=== PATIENT | female | born 1945 | race Caucasian/White ===

== ENCOUNTER 2019-12-20 14:22 | Emergency (ER) | payer MEDICARE ==
[2019-12-20 14:28] VITALS: RESP 18; TEMP 98.1
[2019-12-20 15:42] LABS: Basophils # (A) 0.1 k/uL (0-0.2); Basophils % (A) 1 %; Eosinophils # (A) 0.1 k/uL (0-0.7); Eosinophils % (A) 2 %; HGB 14.6 gm/dL (11.4-16.0); Lymphocytes # (A) 1.8 k/uL (1.0-4.8); Lymphocytes % (A) 30 %; MCH 28.3 pg (25.0-35.0); MCHC 32.4 g/dL (31.0-37.0); MCV 87.5 fL (80.0-100.0); Mean Platelet Volume 6.9; Monocytes # (A) 0.3 k/uL (0-1.0); Monocytes % (A) 5 %; Neutrophils # (A) 3.5 k/uL (1.3-7.7); Neutrophils % (A) 59 %; Platelet Count 309 k/uL (150-450); RBC 5.14 m/uL (3.80-5.40); RDW 13.7 % (11.5-15.5); WBC 5.9 k/uL (3.8-10.6)
[2019-12-20 15:49] LABS: Calcium 9.7 mg/dL (8.4-10.2); Potassium 4.3 mmol/L (3.5-5.1)
--- NOTE | 2019-12-20 15:49 | XR ---
EXAMINATION TYPE: XR chest 2V DATE OF EXAM: 12/20/2019 COMPARISON: NONE HISTORY: Hypertension TECHNIQUE: 2 views FINDINGS: Heart is normal. Lungs are clear of infiltrate. There is no pleural effusion. There is smal l linear density left lung base. Bony thorax is intact. IMPRESSION: Minimal pleural reaction or subsegmental atelectasis left lung base. Normal heart.
--- NOTE | 2019-12-20 15:55 | ED ---
General Adult HPI - General Chief complaint: Recheck/Abnormal Lab/Rx Stated complaint: High blood pressure Time Seen by Provider: 12/20/19 15:05 Source: patient Mode of arrival: ambulatory Limitations: no limitations - History of Present Illness Initial comments: Dictation was produced using [employer] dictation software. please excuse any grammatical, word or spelling errors. Chief Complaint: 74-year-old female with past medical history of hypertension and glaucoma presents with elevated blood pressure. History of Present Illness: She is 74-year-old female she has history of hypertension. She is has her hypertension managed by her primary care physician. Patient was instructed by her PCP to regular check her blood pressures and to seek medical attention if her systolics are elevated above 170. Patient checked her blood pressure today and she had systolics in the 200s. Patient denies any symptoms of headache, chest pain or shortness of breath. She denies any strokelike symptoms. She states that she is been struggling with ALLERGIC reactions to glaucoma medications. Her reactions to her glaucoma medications is known by ophtamologist Dr. Boo. She recently started preservative-free eyedrops treat her glaucoma. There is suspicion that patient having a reaction to preservatives and medications. States that her symptoms of reaction are conjunctivitis, eye watering. She denies any eye pain at this time. The ROS documented in this emergency department record has been reviewed and confirmed by me. Those systems with pertinent positive or negative responses have been documented in the HPI. All other systems are other negative and/or noncontributory. PHYSICAL EXAM: General Impression: Alert and oriented x3, not in acute distress HEENT: Normocephalic atraumatic, extra-ocular movements intact, pupils equal and reactive to light bilaterally, mucous membranes moist, no pain with shooting of the lites, no tenderness to palpation of the globes, there is some erythema to the upper and lower eyelids, mild lacrimation and conjunctivitis Cardiovascular: Heart regular rate and rhythm, S1&S2 audible, no murmurs, rubs or gallops Chest: Lungs clear to auscultation bilaterally, no rhonchi, no wheeze, no rales Abdomen: Bowel sounds present, abdomen soft, non-tender, non-distended, no organomegaly Musculoskeletal: Pulses present and equal in all extremities, no peripheral edema Motor: no focal deficits noted Neurological: CN II-XII grossly intact, no focal motor or sensory deficits noted Skin: Intact with no visualized rashes Psych: Normal affect and mood ED course: 74 year old female past medical history of hypertension presents with clinical presentation consistent with asymptomatic hypertension. She also has secondary complaint of eye reaction to her medications. Vital signs upon arrival shows blood pressure 216/112, rest of vital signs within acceptable limits.Return evaluation obtained. CBC, metabolic panel is unremarkable. Patient given small dose of hydralazine with improvement of blood pressure. Patient did have some eye complaints. Her visual acuity is 20/40 bilaterally. Intraocular pressures were measuring 14 on the right 18 on the left. She was given some proparacaine with immediate relief of her symptoms. This concern that patient's eye symptoms are secondary to chemical conjunctivitis. She's been having persistent symptoms for the last several weeks since being managed by napper grinder. States that her eye symptoms appear to be the same. Patient told that she should follow-up with her primary care physician for outpatient management of her blood pressure. She is told to return to the emergency department if her blood pressure is high and she has any symptoms of chest pain shortness of breath, strokelike symptoms or headache. Patient is understandable and agreeable to plan. Patient will be discharged. EKG interpretation: Ventricular rate 60, sinus rhythm, MA interval 210, Q 66, QTC 404. No MA prolongation, no QTC prolongation, no ST or T-wave changes noted. Overall, this EKG is unremarkable - Related Data Home Medications Medication Instructions Recorded Confirmed Diltiazem Cd [Cardizem Cd] 240 mg PO HS 06/19/16 07/31/16 Metoprolol Tartrate [Lopressor] 50 mg PO DAILY 06/19/16 07/31/16 Oxaprozin [Daypro] 600 mg PO Q2D 06/19/16 07/31/16 Allergies Allergy/AdvReac Type Severity Reaction Status Date / Time dorzolamide Allergy Unknown Verified 12/20/19 14:28 Review of Systems ROS Statement: Those systems with pertinent positive or pertinent negative responses have been documented in the HPI. ROS Other: All systems not noted in ROS Statement are negative. Past Medical History Past Medical History: Eye Disorder, Hypertension, Osteoarthritis (OA) Additional Past Medical History / Comment(s): recent hx. detached retina after last cataract surg. History of Any Multi-Drug Resistant Organisms: None Reported Additional Past Surgical History / Comment(s): colonoscopies, recent cataract surg. left eye Past Anesthesia/Blood Transfusion Reactions: No Reported Reaction Past Psychological History: No Psychological Hx Reported Smoking Status: Former smoker Past Alcohol Use History: None Reported Past Drug Use History: None Reported - Past Family History Sister(s) Family Medical History: Cancer General Exam Limitations: no limitations Course Vital Signs 12/20/19 12/20/19 14:25 15:54 Temperature 98.1 F Pulse Rate 63 60 Respiratory 18 18 Rate Blood Pressure 216/112 188/110 O2 Sat by Pulse 98 98 Oximetry Medical Decision Making - Lab Data Result diagrams: 12/20/19 15:27 12/20/19 15:27 Lab Results 12/20/19 12/20/19 Range/Units 15:27 15:27 WBC 5.9 (3.8-10.6) k/uL RBC 5.14 (3.80-5.40) m/uL Hgb 14.6 (11.4-16.0) gm/dL Hct 45.0 (34.0-46.0) % MCV 87.5 (80.0-100.0) fL MCH 28.3 (25.0-35.0) pg MCHC 32.4 (31.0-37.0) g/dL RDW 13.7 (11.5-15.5) % Plt Count 309 (150-450) k/uL Neutrophils % 59 % Lymphocytes % 30 % Monocytes % 5 % Eosinophils % 2 % Basophils % 1 % Neutrophils # 3.5 (1.3-7.7) k/uL Lymphocytes # 1.8 (1.0-4.8) k/uL Monocytes # 0.3 (0-1.0) k/uL Eosinophils # 0.1 (0-0.7) k/uL Basophils # 0.1 (0-0.2) k/uL Sodium 141 (137-145) mmol/L Potassium 4.3 (3.5-5.1) mmol/L Chloride 107 (98-107) mmol/L Carbon Dioxide 24 (22-30) mmol/L Anion Gap 10 mmol/L BUN 18 H (7-17) mg/dL Creatinine 0.79 (0.52-1.04) mg/dL Est GFR (CKD-EPI)AfAm 85 (>60 ml/min/1.73 sqM) Est GFR (CKD-EPI)NonAf 74 (>60 ml/min/1.73 sqM) Glucose 105 H (74-99) mg/dL Calcium 9.7 (8.4-10.2) mg/dL Disposition Clinical Impression: Hypertension, Conjunctivitis Disposition: HOME SELF-CARE Condition: Good Instructions (If sedation given, give patient instructions): Hypertension (ED) Is patient prescribed a controlled substance at d/c from ED?: No Referrals: Praveen Wood MD [Primary Care Provider] - 1-2 days Time of Disposition: 17:17
[2019-12-20] MEDS ORDERED: hydrALAZINE HCL 20 MG/ML 1 ML VIAL IVP STA (16:13)
[2019-12-20] MEDS ORDERED: PROPARACAINE 0.5% OPHTH DROPS 15 ML BTL BOTH EYES STA (16:54)
[2019-12-20 17:43] VITALS: BP 175/85; PULSE 62
== END 2019-12-20 17:33 | disposition home or self-care (01) ==
LOC: EC 14:22
DX: I10 Essential (primary) hypertension (principal); H10.213 Acute toxic conjunctivitis, bilateral; T50.995A Adverse effect of other drugs, medicaments and biological substances, initial encounter; M19.90 Unspecified osteoarthritis, unspecified site; Z87.891 Personal history of nicotine dependence; Z79.1 Long term (current) use of non-steroidal anti-inflammatories (NSAID); Z79.899 Other long term (current) drug therapy; Z88.8 Allergy status to other drugs, medicaments and biological substances; Z98.42 Cataract extraction status, left eye
CPT/HCPCS: 99284; 96374; 36415; 93005; 80048; 85025; 71046; J0360

== ENCOUNTER 2021-07-21 13:26 | Emergency (ER) | payer MEDICARE ==
[2021-07-21 13:34] VITALS: TEMP 97.9
[2021-07-21] MEDS ORDERED: hydrALAZINE HCL 20 MG/ML 1 ML VIAL IVP STA ×2 (14:08→15:13)
--- NOTE | 2021-07-21 15:00 | ED ---
General Adult HPI - General Chief complaint: Recheck/Abnormal Lab/Rx Stated complaint: High BP sent by pcp Time Seen by Provider: 07/21/21 14:01 Source: patient Mode of arrival: ambulatory Limitations: no limitations - History of Present Illness Initial comments: This 76-year-old female presents with a complaint of hypertension. She states that she was sent over by her doctor. She relates a long-standing history of high blood pressure for the last 20+ years. She normally had been taking the beta roland as well as a calcium channel roland and recently started seeing Dr. Gutierres. Her heart rate at times was apparently down into the 40s and now she is having some medication adjustments. She was taken off the Cardizem and beta roland and apparently started on lisinopril and just picked up a prescription for hydralazine. She states that she has had a very faint slight frontal headache but nothing severe whatsoever. She denies any other symptomatology. She denies any chest pain or shortness of breath. She denies any recent change in her eating habits. No recent fevers or infections. No other complaints or modifying factors. She states that she has been somewhat anxious in regards to her hypertension recently. - Related Data Home Medications Medication Instructions Recorded Confirmed Diltiazem Cd [Cardizem Cd] 240 mg PO HS 06/19/16 07/31/16 Metoprolol Tartrate [Lopressor] 50 mg PO DAILY 06/19/16 07/31/16 Oxaprozin [Daypro] 600 mg PO Q2D 06/19/16 07/31/16 Allergies Allergy/AdvReac Type Severity Reaction Status Date / Time dorzolamide Allergy Unknown Verified 07/21/21 13:32 Review of Systems ROS Statement: Those systems with pertinent positive or pertinent negative responses have been documented in the HPI. ROS Other: All systems not noted in ROS Statement are negative. Past Medical History Past Medical History: Eye Disorder, Hypertension, Osteoarthritis (OA) Additional Past Medical History / Comment(s): recent hx. detached retina after last cataract surg. History of Any Multi-Drug Resistant Organisms: None Reported Additional Past Surgical History / Comment(s): colonoscopies, recent cataract surg. left eye Past Anesthesia/Blood Transfusion Reactions: No Reported Reaction Past Psychological History: No Psychological Hx Reported Smoking Status: Never smoker Past Alcohol Use History: None Reported Past Drug Use History: None Reported - Past Family History Sister(s) Family Medical History: Cancer General Exam - General Exam Comments Initial Comments: GENERAL: The patient is well nourished and well hydrated. VITAL SIGNS: Heart rate, blood pressure, respiratory rate reviewed as recorded in nurse's notes. EYES: Pupils are round and reactive. Extraocular movements are intact. No conjunctival / lid redness or swelling. ENT: No external evidence of injury, swelling, or ecchymosis. Airway is patent. Throat is clear. NECK: Nontender. No swelling or evidence of injury. No subcutaneous emphysema. Trachea is midline. No thyroid mass. HEART: Regular rate and rhythm. Good peripheral pulses. LUNGS/CHEST: Breath sounds clear and equal bilaterally. No rales, rhonchi, or wheezes. No ecchymosis, subcutaneous emphysema, or tenderness. ABDOMEN: Abdomen soft without tenderness. No palpable masses or organomegaly. No peritoneal signs. No abdominal wall swelling or ecchymosis. EXTREMITIES: No extremity tenderness. Normal muscle tone and function. No thoracolumbar tenderness. NEUROLOGIC: Sensation is grossly intact. Cranial nerve exam reveals face is symmetrical, tongue is midline, speech is clear. SKIN: No abrasions or ecchymosis is noted. No induration or masses noted. PSYCHIATRIC: Alert and oriented. Appropriate behavior and judgment. Limitations: no limitations Course Vital Signs 07/21/21 13:28 Temperature 97.9 F Pulse Rate 67 Respiratory 19 Rate Blood Pressure 222/106 O2 Sat by Pulse 97 Oximetry Medical Decision Making - Medical Decision Making The patient was seen and examined. All diagnostics were reviewed. She just had lab work done yesterday and this is reviewed and is normal does include a basic metabolic profile. The EKG shows a normal sinus rhythm at a rate of 62 with a first-degree AV block. There is no acute ST-T wave changes identified. The IL intervals 210, the QRS duration is 68, and the QTc interval is 399. An IV is established and she received hydralazine 10 mg. Her blood pressure did come down fairly significantly. She'll be given another 5 mg of hydralazine. It is felt as though she stable for discharge. She relates only a very slight headache and it is not felt as though computed tomography scan is warranted at this time. This felt as though she stable for discharge home with close follow- up. She is to continue with medication changes and put forth by her roustabout supervisor as well. Return parameters were discussed. She is to continue with her blood pressure log as well. Close follow-up recommended. Disposition Clinical Impression: Hypertensive crisis Disposition: HOME SELF-CARE Condition: Good Instructions (If sedation given, give patient instructions): Low-Sodium Diet (ED), Hypertension in the Older Adult (ED) Additional Instructions: Please continue with the medications as prescribed by your doctor. Is patient prescribed a controlled substance at d/c from ED?: No Referrals: Keith Monson MD [Primary Care Provider] - 1-2 days Time of Disposition: 15:13
[2021-07-21 15:32] VITALS: BP 162/79; PULSE 63; RESP 18
== END 2021-07-21 15:41 | disposition home or self-care (01) ==
LOC: EC 13:26
DX: I16.9 Hypertensive crisis, unspecified (principal); M19.90 Unspecified osteoarthritis, unspecified site
CPT/HCPCS: 93005; 99283; 96374; J0360

== ENCOUNTER 2021-08-16 17:37 | Emergency (ER) | payer MEDICARE ==
[2021-08-16 17:48] VITALS: TEMP 98.6
[2021-08-16] MEDS ORDERED: SODIUM CHLORIDE 0.9% 1,000 ML IV STA (18:06)
--- NOTE | 2021-08-16 18:08 | ED ---
General Adult HPI - General Chief complaint: Dizziness Stated complaint: Hypertension Time Seen by Provider: 08/16/21 17:54 Source: patient, RN notes reviewed Mode of arrival: ambulatory Limitations: no limitations - History of Present Illness Initial comments: Patient is a pleasant 76-year-old female presenting to the emergency department with concerns for her hypertension. Patient does have chronic hypertension and is on several medications for this. Medication changes were made recently. Patient does have occasional palpitations. Patient did hear some pounding in her ears earlier however that has resolved. No headache or confusion or weakn ess. No chest pain. Patient did take her blood pressure prior to arrival at 174/85. Patient's blood pressure usually is better controlled than that. - Related Data Home Medications Medication Instructions Recorded Confirmed Oxaprozin [Daypro] 600 mg PO Q48H 06/19/16 08/16/21 Aspirin EC [Ecotrin Low Dose] 81 mg PO HS 08/16/21 08/16/21 Cholecalciferol (Vitamin D3) 125 mcg PO DAILY 08/16/21 08/16/21 [Vitamin D3 (125 MCG = 5,000 IU)] Dorzolamide/Timolol/Pf 1 drop BOTH EYES BID 08/16/21 08/16/21 [Dorzolamide 2%-Timolol 0.5%] Metoprolol Succinate (ER) [Toprol 50 mg PO DAILY 08/16/21 08/16/21 Xl] NIFEdipine [NIFEdipine ER] 30 mg PO DAILY 08/16/21 08/16/21 Propylene Glycol/Peg 400/Pf 1 drop BOTH EYES BID 08/16/21 08/16/21 [Systane 0.3-0.4% Eye Drop] cycloSPORINE 0.05% OPHTH SOLN 1 applicator BOTH EYES BID 08/16/21 08/16/21 [Restasis] hydrALAZINE HCL 25 mg PO TID 08/16/21 08/16/21 hydrALAZINE HCL 50 mg PO TID 08/16/21 08/16/21 lisinopriL 20 mg PO DAILY 08/16/21 08/16/21 Allergies Allergy/AdvReac Type Severity Reaction Status Date / Time No Known Allergies Allergy Verified 08/16/21 19:06 Review of Systems ROS Statement: Those systems with pertinent positive or pertinent negative responses have been documented in the HPI. ROS Other: All systems not noted in ROS Statement are negative. Constitutional: Denies: fever Eyes: Denies: eye pain ENT: Denies: ear pain Respiratory: Denies: cough Cardiovascular: Reports: as per HPI, palpitations. Denies: chest pain Endocrine: Denies: fatigue Gastrointestinal: Denies: abdominal pain Genitourinary: Denies: dysuria Musculoskeletal: Denies: back pain Skin: Denies: rash Neurological: Reports: as per HPI (Patient felt lightheaded.). Denies: headache, weakness Past Medical History Past Medical History: Eye Disorder, Hypertension, Osteoarthritis (OA) Additional Past Medical History / Comment(s): recent hx. detached retina after last cataract surg. History of Any Multi-Drug Resistant Organisms: None Reported Additional Past Surgical History / Comment(s): colonoscopies, recent cataract surg. left eye Past Anesthesia/Blood Transfusion Reactions: No Reported Reaction Past Psychological History: No Psychological Hx Reported Smoking Status: Never smoker Past Alcohol Use History: None Reported Past Drug Use History: None Reported - Past Family History Sister(s) Family Medical History: Cancer General Exam Limitations: no limitations General appearance: alert, in no apparent distress Head exam: Present: normocephalic Eye exam: Present: normal appearance, PERRL, EOMI. Absent: nystagmus ENT exam: Present: normal oropharynx, TM's normal bilaterally Neck exam: Present: normal inspection Respiratory exam: Present: normal lung sounds bilaterally Cardiovascular Exam: Present: regular rate, normal rhythm GI/Abdominal exam: Present: soft. Absent: tenderness Extremities exam: Present: normal inspection Neurological exam: Present: alert, oriented X3, CN II-XII intact. Absent: motor sensory deficit Psychiatric exam: Present: normal affect, normal mood Skin exam: Present: normal color Course Vital Signs 08/16/21 08/16/21 17:44 19:35 Temperature 98.6 F Pulse Rate 76 71 Respiratory 16 18 Rate Blood Pressure 129/80 150/82 O2 Sat by Pulse 96 97 Oximetry EKG Findings - EKG Comments: EKG Findings:: Normal sinus rhythm with a rate of 77. [place] 184. QRS 88. QT 380. QTC 4:30. Normal axis. Normal QRS. No acute ST change. Medical Decision Making - Medical Decision Making Patient reevaluated and resting comfortably in bed. Systolic Blood pressure 150. Patient family updated on results and need for follow-up. Patient is receptive to low dose Xanax. - Lab Data Result diagrams: 08/16/21 18:30 08/16/21 18:30 Lab Results 08/16/21 08/16/21 Range/Units 18:30 18:30 WBC 5.0 (3.8-10.6) k/uL RBC 4.53 (3.80-5.40) m/uL Hgb 13.6 (11.4-16.0) gm/dL Hct 39.6 (34.0-46.0) % MCV 87.5 (80.0-100.0) fL MCH 30.1 (25.0-35.0) pg MCHC 34.4 (31.0-37.0) g/dL RDW 13.7 (11.5-15.5) % Plt Count 307 (150-450) k/uL MPV 7.3 Neutrophils % (Manual) 54 % Lymphocytes % (Manual) 39 % Monocytes % (Manual) 6 % Eosinophils % (Manual) 1 % Neutrophils # (Manual) 2.70 (1.3-7.7) k/uL Lymphocytes # (Manual) 1.95 (1.0-4.8) k/uL Monocytes # (Manual) 0.30 (0-1.0) k/uL Eosinophils # (Manual) 0.05 (0-0.7) k/uL Nucleated RBCs 0 (0-0) /100 WBC Manual Slide Review Performed Sodium 138 (137-145) mmol/L Potassium 4.0 (3.5-5.1) mmol/L Chloride 107 (98-107) mmol/L Carbon Dioxide 20 L (22-30) mmol/L Anion Gap 11 mmol/L BUN 15 (7-17) mg/dL Creatinine 0.66 (0.52-1.04) mg/dL Est GFR (CKD-EPI)AfAm >90 (>60 ml/min/1.73 sqM) Est GFR (CKD-EPI)NonAf 85 (>60 ml/min/1.73 sqM) Glucose 115 H (74-99) mg/dL Calcium 9.9 (8.4-10.2) mg/dL Total Bilirubin 0.7 (0.2-1.3) mg/dL AST 39 H (14-36) U/L ALT 31 (4-34) U/L Alkaline Phosphatase 96 (38-126) U/L Total Protein 8.1 (6.3-8.2) g/dL Albumin 4.3 (3.5-5.0) g/dL Disposition Clinical Impression: Hypertension Disposition: HOME SELF-CARE Condition: Stable Instructions (If sedation given, give patient instructions): Hypertension (ED) Additional Instructions: Please do follow-up to primary care physician in the next day or 2 for recheck. Return for uncontrolled blood pressure, weakness or confusion, worsening or changing symptoms or other concerns. Is patient prescribed a controlled substance at d/c from ED?: No Referrals: Keith Monson MD [Primary Care Provider] - 1-2 days Time of Disposition: 20:02
[2021-08-16 18:52] LABS: ALT 31 U/L (4-34); AST 39 U/L (14-36); African American GFR (CKD) >90 (>60 ml/min/1.73 sqM); Albumin 4.3 g/dL (3.5-5.0); Alkaline Phosphatase 96 U/L (38-126); Anion Gap 11 mmol/L; Blood Urea Nitrogen 15 mg/dL (7-17); Calcium 9.9 mg/dL (8.4-10.2); Carbon Dioxide 20 mmol/L (22-30); Chloride 107 mmol/L (98-107); Glucose 115 mg/dL (74-99); Non-African American GFR(CKD) 85 (>60 ml/min/1.73 sqM); Sodium 138 mmol/L (137-145); Total Bilirubin 0.7 mg/dL (0.2-1.3); Total Protein 8.1 g/dL (6.3-8.2)
[2021-08-16 19:00] LABS: HCT 39.6 % (34.0-46.0); HGB 13.6 gm/dL (11.4-16.0); MCH 30.1 pg (25.0-35.0); MCHC 34.4 g/dL (31.0-37.0); MCV 87.5 fL (80.0-100.0); Mean Platelet Volume 7.3; Platelet Count 307 k/uL (150-450); RBC 4.53 m/uL (3.80-5.40); RDW 13.7 % (11.5-15.5)
[2021-08-16 19:21] LABS: Eosinophils # (M) 0.05 k/uL (0-0.7); Lymphocytes # (M) 1.95 k/uL (1.0-4.8); Neutrophils % (M) 54 %; Nucleated Red Blood Cells 0 /100 WBC (0-0); Total Cells Counted 100
[2021-08-16 19:35] VITALS: RESP 18
[2021-08-16] MEDS ORDERED: ALPRAZolam 0.25 MG TAB PO STA (20:01)
[2021-08-16 20:12] VITALS: BP 158/86; PULSE 70
== END 2021-08-16 20:11 | disposition home or self-care (01) ==
LOC: EC 17:37
DX: I10 Essential (primary) hypertension (principal); M19.90 Unspecified osteoarthritis, unspecified site; Z79.82 Long term (current) use of aspirin
CPT/HCPCS: 36415; 80053; 85025; 93005; 96360; 99283

== ENCOUNTER 2021-12-13 09:17 | Day surgery (SDC) | payer MEDICARE ==
[2021-12-07 15:04] VITALS: BMI 30.7
[~2021-12-13 09:17] MED LIST: LACTATED RINGERS 1,000 ML IV SCH; LIDOCAINE 1% (10MG/ML) FOR IV START INTRADERMA PRN
[2021-12-13 10:00] VITALS: TEMP 96.9
[2021-12-13] MEDS ORDERED: PROPOFOL 10 MG/ML 20 ML VIAL IV ONE (10:29)
[2021-12-13] MEDS ORDERED: LIDOCAINE 1% INJ 10MG/ML (20 ML MDV) ONE (10:29)
--- NOTE | 2021-12-13 11:04 | P.PCN ---
Date of Procedure: 12/13/21 Procedure(s) Performed: BRIEF HISTORY: Patient is a 76-year-old pleasant white female scheduled for an elective colonoscopy as a part of screening for colorectal neoplasia. PROCEDURE PERFORMED: Colonoscopy with biopsy. PREOPERATIVE DIAGNOSIS: Screening for colon cancer. IV sedation per Anesthesia. PROCEDURE: After informed consent was obtained, the patient, was brought into the endoscopy unit. IV sedation was administered by Anesthesia under continuous monitoring. Digital rectal examination was normal. Initially the Olympus CF-160 flexible video colonoscope was then inserted in the rectum, gradually advanced into the cecum without any difficulty. Careful examination was performed as the scope was gradually being withdrawn. Ileocecal valve and the appendiceal orifice were visualized and appeared normal. Prep was excellent. Mucosa of the cecum, ascending colon, transverse colon, descending colon, appeared normal. In the descending colon there was a 3 mm sessile polyp removed by cold biopsy. Scattered left sided diverticulosis seen. Rest of the sigmoid colon, and rectum appeared normal. Retroflexion was performed in the rectum and no lesions were seen. The patient tolerated the procedure well. IMPRESSION: 3 mm sessile ascending colon polyp status post cold biopsy Scattered sigmoid diverticulosis RECOMMENDATIONS: Findings of this examination were discussed with the patient as well as a family. She was advised to follow with the biopsy results. If the biopsy reveals adenoma she can have a repeat colonoscopy in 5 years from now because of sudden her overall medical condition..
[2021-12-13 11:12] VITALS: BP 121/77; PULSE 69; RESP 12
== END 2021-12-13 12:00 | disposition home or self-care (01) ==
LOC: ORWHC2ENDO 09:17
PROVIDERS: ATTEND Internal Medicine Gastroenterology
DX: Z12.11 Encounter for screening for malignant neoplasm of colon (principal); D12.2 Benign neoplasm of ascending colon; K57.30 Diverticulosis of large intestine without perforation or abscess without bleeding
CPT/HCPCS: 45380; 88305; J2001; J2704

== ENCOUNTER → 2022-11-22 | Outpatient (CLI) | payer MEDICARE ==
--- NOTE | 2022-11-23 09:32 | CT ---
EXAMINATION TYPE: CT ChestAbdPelvis wo/w con CT DLP: 4057.1 combined mGycm, Automated exposure control for dose reduction was used. DATE OF EXAM: 11/22/2022 4:06 PM COMPARISON: None. CLINICAL INDICATION:Female, 77 years old with history of R59.0 enlarged lymph nodes. Technique: Multiple axial images of the chest, abdomen, and pelvis were obtained. Two-dimensional cor onal and sagittal reconstructions were obtained. Contrast used:50ml mL of Isovue 300 without and with IV Contrast, Oral contrast used: with Oral Contrast Findings: CHEST: LUNGS/ PLEURA: The lung parenchyma appears unremarkable. No focal consolidation, pneumothorax or ple ural effusion. AIRWAY: Patent and unremarkable. HEART: Size within normal limits. Mild atherosclerosis of the arterial vasculature. MEDIASTINUM: No gross evidence of adenopathy. VASCULATURE: No aortic aneurysm. MUSCULOSKELETAL: No acute osseous abnormalities. SOFT TISSUES/LYMPH NODES: Right thyroid nodule posteriorly measuring 1.5 cm. LOWER NECK: No significant findings. ABDOMEN: ABDOMEN LIVER: Unremarkable GALLBLADDER AND BILE DUCTS: Dilation of the common hepatic duct up to 9 mm. PANCREAS: Unremarkable. Somewhat which is lower attenuating and pancreatic parenchyma on the uncinate process. This area measures roughly on coronal imaging 2.9 x 2.0 x 2.5 cm. Visualized pancreatic bod y lesion measuring up to 16 mm with some peripheral calcifications. SPLEEN: Unremarkable. ADRENAL GLANDS: Unremarkable. KIDNEYS AND URETERS: Nonobstructing right renal pelvis calculus measuring 2 mm. 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 PELVIS BLADDER: Unremarkable REPRODUCTIVE: Unremarkable. ABDOMEN & PELVIS STOMACH AND BOWEL: No evidence of bowel obstruction. Scattered clonic diverticula. PERITONEUM: No evidence of pneumoperitoneum or free fluid. VASCULATURE: No evidence of aortic aneurysm. MUSCULOSKELETAL: No acute osseous abnormalities, grade 2 anterolisthesis of L4 and L5. No evidence of spondylolysis. There is disc degeneration changes throughout the spine. LYMPH NODES: No gross evidence for lymphadenopathy. SOFT TISSUE/ABDOMINAL WALL: Small fat-containing umbilical hernia. IMPRESSION: 1. Low-density lesion within the pancreatic uncinate process and pancreatic body which are incomplet rand evaluated. Further evaluation with MR with IV contrast and MRCP pancreas are recommended. 2. No evidence for lymphadenopathy involving the visualized chest , abdomen or pelvis. 3. Dilation of the common bile duct which could be secondary to #1 4. Colonic diverticulosis. 5. Grade 2 anterolisthesis of L4 and L5. 6. 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 7. Nonobstructing right renal calculus.
--- NOTE | 2022-11-23 09:32 | CT ---
EXAMINATION TYPE: CT soft tissue neck wo/w con CT DLP: 4057.1 combined mGycm, Automated exposure control for dose reduction was used. DATE OF EXAM: 11/22/2022 4:06 PM COMPARISON: None. CLINICAL INDICATION:Female, 77 years old with history of R59.0 enlarged lymph nodes; enlarged lymph n odes TECHNIQUE: Standard enhanced CT of the neck. Axial sections with coronal and sagittal reformats were obtained. Contrast used:50ml mL of Isovue 300 without and with IV Contrast, Oral contrast used: none. FINDINGS: Brain: Visualized portions are grossly unremarkable. Orbits: Bilateral aphakia. Sinuses: Grossly unremarkable. Spaces of the neck: Clear and symmetric. Musculoskeletal: No acute osseous pathology. Lymph nodes: Multiple nonenlarged lymph nodes are seen along both anterior chains of the neck. Vascular structures: Visualized major arteries are patent without evidence of aneurysm. Thoracic Inlet/airway: Airway is patent. The lung apices are clear. Soft tissues/Thyroid: Right thyroid nodule measuring up to 1.6 cm. Left thyroid nodule to 1.0 cm. IMPRESSION 1. No evidence for lymphadenopathy or acute process involving the neck. 2. Right thyroid nodule measuring up to 1.6 cm. Consider dedicated thyroid ultrasound for further ch aracterization.
== END | disposition home or self-care (01) ==
LOC: RADCTMAIN 13:14
PROVIDERS: ATTEND Internal Medicine
DX: N20.0 Calculus of kidney (principal); D17.71 Benign lipomatous neoplasm of kidney; E04.1 Nontoxic single thyroid nodule; K57.30 Diverticulosis of large intestine without perforation or abscess without bleeding; M43.16 Spondylolisthesis, lumbar region; K83.8 Other specified diseases of biliary tract; K86.9 Disease of pancreas, unspecified; Z71.3 Dietary counseling and surveillance
CPT/HCPCS: 82565; 84520; 70492; 71270; 74178; 36415; Q9967

== ENCOUNTER 2022-11-29 06:16 | Day surgery (SDC) | payer MEDICARE ==
[2022-11-26 11:39] VITALS: BMI 31.4
[2022-11-29] MEDS ORDERED: LACTATED RINGERS 1,000 ML IV SCH (06:39)
[2022-11-29] MEDS ORDERED: fentaNYL (PF) 50 MCG/ML 2 ML AMP ONE (07:05)
[2022-11-29] MEDS ORDERED: LIDOCAINE 2% INJ 20 MG/ML (2 ML VIAL) ONE (07:05)
[2022-11-29] MEDS ORDERED: PROPOFOL 10 MG/ML 20 ML VIAL IV ONE (07:05)
[2022-11-29] MEDS ORDERED: ONDANSETRON 4 MG/2 ML VIAL ONE (07:05)
[2022-11-29] MEDS ORDERED: KETOROLAC 15 MG/ML 1 ML VIAL ONE (07:05)
[2022-11-29] MEDS ORDERED: PHENYLEPHRINE-0.9% NACL SYG 1,000 MCG/10 ML SYRINGE ONE (07:05)
[2022-11-29 07:07] VITALS: TEMP 97.6
[2022-11-29 08:19] VITALS: RESP 18
[2022-11-29 08:46] VITALS: BP 107/69; PULSE 52
[2022-11-29 10:11] LABS: Basophils % (A) 0 %; Eosinophils % (A) 1 %; HCT 31.7 % (34.0-46.0); HGB 10.5 gm/dL (11.4-16.0); Lymphocytes # (A) 1.7 k/uL (1.0-4.8); Lymphocytes % (A) 36 %; MCH 29.7 pg (25.0-35.0); MCHC 33.1 g/dL (31.0-37.0); MCV 89.7 fL (80.0-100.0); Mean Platelet Volume 8.9; Monocytes # (A) 0.5 k/uL (0-1.0); Monocytes % (A) 11 %; Neutrophils # (A) 2.3 k/uL (1.3-7.7); Neutrophils % (A) 49 %; Platelet Count 182 k/uL (150-450); RBC 3.53 m/uL (3.80-5.40); RDW 14.7 % (11.5-15.5); WBC 4.7 k/uL (3.8-10.6)
[2022-11-29 10:20] LABS: Reticulocyte % 1.7 % (0.5-2.0)
--- NOTE | 2022-11-29 10:26 | PCN ---
PROCEDURE NOTE PROCEDURE PERFORMED: Bone marrow biopsy with aspiration under local and general sedation. DESCRIPTION OF PROCEDURE: The patient was placed in the left lateral decubitus position. The area by the posterior iliac crest was palpated and marked with a sterile marker. The area was prepped with Betadine and alcohol swabs x3. A 10 mL of local lidocaine was applied to the bone marrow surface. The bone marrow was then accessed with a 4-inch Jamshidi needle with approximately 15 mL of aspirate. This was then advanced to obtain about a 0.5 to 1 cm core sample. The aspirate and core sample will be sent for flow cytometry, FISH, and NGS panel. We will follow up on the above. The patient was returned to postop in stable condition. We will follow up on the above studies. MMODL / IJN: [id number] /
== END 2022-11-29 09:30 | disposition home or self-care (01) ==
LOC: OR 06:16
PROVIDERS: ATTEND Internal Medicine
DX: D89.1 Cryoglobulinemia (principal); I10 Essential (primary) hypertension; M19.90 Unspecified osteoarthritis, unspecified site; Z87.891 Personal history of nicotine dependence; Z79.02 Long term (current) use of antithrombotics/antiplatelets; Z79.891 Long term (current) use of opiate analgesic; Z79.899 Other long term (current) drug therapy; Z98.41 Cataract extraction status, right eye; Z98.42 Cataract extraction status, left eye; Z80.3 Family history of malignant neoplasm of breast; Z80.8 Family history of malignant neoplasm of other organs or systems; Z79.51 Long term (current) use of inhaled steroids; Z79.83 Long term (current) use of bisphosphonates; Z79.811 Long term (current) use of aromatase inhibitors; Z79.2 Long term (current) use of antibiotics; Z79.1 Long term (current) use of non-steroidal anti-inflammatories (NSAID)
CPT/HCPCS: 85025; 85045; 38222; J2405; J3010; J1885; J2370; J2704; J2001

== ENCOUNTER → 2022-12-07 | Outpatient (CLI) | payer MEDICARE ==
--- NOTE | 2022-12-07 14:06 | MR ---
EXAMINATION: MRI/MRCP. DATE OF EXAM: 12/07/2022 12:25 PM HISTORY: Abnormal CT with pancreatic lesion. TECHNIQUE: Multiplanar, multisequence images of the abdomen were obtained without contrast. MRCP imag ing was also performed.. COMPARISON: CT of the chest, abdomen and pelvis on 11/22/2022. ABDOMEN: Liver: Normal. Gallbladder/Biliary: There is gallstones are seen within the gallbladder. Pancreas: There is a multiloculated cystic lesion within the body of the pancreas measuring 2.1 cm in diameter. There is a multiloculated cystic lesion within the head of the pancreas measuring 2.4 cm i n diameter. An additional cystic lesion is also seen within the region of the neck of the pancreas me asuring 2 cm in diameter. There is to be several small cystic lesions also seen within the uncinate p rocess of the pancreas. Multiple additional subcentimeter cystic lesions are also seen within the bod y parenchymal regions of the pancreas. There is no pancreatic ductal dilation or clear solid mass marcelle ntified. These findings could potentially represent multiple intraductal papillary mucinous neoplasms of the side branch type. The risks or mucinous cystadenomas would also be a consideration versus sim ple cysts. Spleen: Normal. Adrenal Glands: Normal. Kidneys: Normal. GI Tract: Normal. Mesentery/Peritoneum: A new heterogeneous mass within the right retroperitoneum is incompletely image d and it appears to extend into the iliac fossa on the right side that may represent a retroperitonea l hematoma versus other mass. A CT of the abdomen and pelvis with contrast is recommended for further evaluation. Vasculature: Normal. Lymph Nodes: Normal. Abdominal Wall: Normal. MUSCULOSKELETAL: Normal. IMPRESSION: 1. Multiple cystic lesions throughout the pancreas described above. These are favored to be benign a nd could represent intraductal papillary mucinous neoplasms of the side branch type, serous or mucino us cystadenomas or cystadenocarcinomas. GI consult and endoscopic ultrasound is recommended for furth er evaluation. 2. New heterogeneous mass within the right retroperitoneum. Potentially represent a retroperitoneal hematoma versus retroperitoneal mass. This is limited in evaluation without contrast and a CT of the abdomen and pelvis is recommended for further evaluation. 3. Cholelithiasis. 4. Biliary ductal dilation with normal tapering of the common bile duct down to the ampulla. No obst ructing stones are seen within the common bile duct or obstructing lesions.
== END | disposition home or self-care (01) ==
LOC: RADMRIMAIN 11:21
PROVIDERS: ATTEND Internal Medicine
DX: K80.20 Calculus of gallbladder without cholecystitis without obstruction (principal); K83.8 Other specified diseases of biliary tract; K86.89 Other specified diseases of pancreas
CPT/HCPCS: 74181

== ENCOUNTER 2023-10-08 20:32 | Emergency (ER) | payer MEDICARE ==
[2023-10-08] MEDS ORDERED: IBUPROFEN 800 MG TAB PO STA ×2 (20:50→23:52)
[2023-10-08 21:06] VITALS: RESP 18; TEMP 97.4
--- NOTE | 2023-10-08 21:12 | ED ---
General Adult HPI - General Chief complaint: Extremity Injury, Lower Stated complaint: Left knee injury Time Seen by Provider: 10/08/23 20:47 Source: patient, RN notes reviewed Mode of arrival: ambulatory Limitations: no limitations - History of Present Illness Initial comments: 78-year-old female with no significant past medical history presents the emergency department with a chief complaint of left knee pain. Patient reports that she was getting into her 's truck at approximately 5:30 PM when she had sudden onset left knee pain. She denies hearing any pop or feeling any tearing-like sensation. She did take ibuprofen at home with symptomatic improvement. She believes she has previous injury to one of her knees however she is unsure which one. Denies numbness, weakness. She reports sharp pain with movement. - Related Data Home Medications Medication Instructions Recorded Confirmed Cholecalciferol (Vitamin D3) 125 mcg PO DAILY 08/16/21 11/26/22 [Vitamin D3 (125 MCG = 5,000 IU)] Dorzolamide/Timolol/Pf 1 drop BOTH EYES BID 08/16/21 11/26/22 [Dorzolamide 2%-Timolol 0.5%] Metoprolol Succinate (ER) [Toprol 50 mg PO HS 08/16/21 11/26/22 Xl] NIFEdipine [NIFEdipine ER] 30 mg PO QAM 08/16/21 11/26/22 Propylene Glycol/Peg 400/Pf 1 drop BOTH EYES BID 08/16/21 11/26/22 [Systane 0.3-0.4% Eye Drop] hydrALAZINE HCL 25 mg PO TID 08/16/21 11/26/22 hydrALAZINE HCL 50 mg PO TID 08/16/21 11/26/22 lisinopriL [Prinivil] 20 mg PO QAM 08/16/21 11/26/22 Multivitamins, Thera [Multivitamin 1 tab PO DAILY 12/07/21 11/26/22 (formulary)] cycloSPORINE [Restasis] 1 applicator BOTH EYES BID 12/07/21 11/26/22 Glucosamine (Unknown Dose) 1 tab PO DAILY 11/26/22 11/26/22 Qulin-3/Dha/Epa/Fish Oil [Fish Oil 1 each PO DAILY 11/26/22 11/26/22 1,000 mg Softgel] Vitamin C/Biotin [Hair, Skin and 1 tab PO DAILY 11/26/22 11/26/22 Nails Chew] Previous Rx's Medication Instructions Recorded Ibuprofen [Motrin] 800 mg PO Q6HR #30 tab 10/08/23 Lidocaine 5% Patch [Lidoderm 5% 1 patch TOPICAL DAILY #5 patch 10/08/23 Patch] Allergies Allergy/AdvReac Type Severity Reaction Status Date / Time No Known Allergies Allergy Verified 10/08/23 20:46 Review of Systems ROS Statement: Those systems with pertinent positive or pertinent negative responses have been documented in the HPI. ROS Other: All systems not noted in ROS Statement are negative. Past Medical History Past Medical History: Hypertension Additional Past Medical History / Comment(s): hx migraines, hx. detached retina after last cataract surgery, blood CA History of Any Multi-Drug Resistant Organisms: None Reported Additional Past Surgical History / Comment(s): colonoscopies, mitzi cataract surgery Past Anesthesia/Blood Transfusion Reactions: No Reported Reaction, Motion Sickness Past Psychological History: No Psychological Hx Reported Smoking Status: Former smoker Past Alcohol Use History: None Reported Past Drug Use History: None Reported - Past Family History Sister(s) Family Medical History: Cancer General Exam - General Exam Comments Initial Comments: General: Alert, in no acute distress Head: atraumatic normocephalic. Eyes PERRL, EOMI intact, mucous membranes moist Respiratory: Lungs clear to auscultation bilaterally Cardiovascular: Heart rate regular rate and rhythm Abdominal: Soft without guarding or rebound Extremities: Normal inspection with full range of motion and normal capillary refill, left knee without any obvious edema or ecchymosis. Limited range of motion secondary to pain. No valgus or varus laxity. No evidence of marked joint effusion Homans sign negative Neuroogic: alert and oriented 3, CN II-XII intact, able to ambulate with steady gait Skin: warm dry and intact with normal color Limitations: no limitations Course Vital Signs 10/08/23 10/08/23 10/09/23 20:43 21:45 00:25 Temperature 97.4 F L Pulse Rate 78 68 65 Respiratory 18 18 18 Rate Blood Pressure 162/81 135/89 140/79 O2 Sat by Pulse 97 96 97 Oximetry Medical Decision Making - Medical Decision Making Was pt. sent in by a medical professional or institution (, PA, RIG BUILDER, urgent care, hospital, or detention...) When possible be specific @ -[No] Did you speak to anyone other than the patient for history (EMS, parent, family, police, friend...)? What history was obtained from this source @ -[No] Did you review nursing and triage notes (agree or disagree)? Why? @ -[I reviewed and agree with nursing and triage notes] Were old charts reviewed (outside hosp., previous admission, EMS record, old EKG, old radiological studies, urgent care reports/EKG's, detention records)? Report findings @ -[No old charts were reviewed] Differential Diagnosis (chest pain, altered mental status, abdominal pain women, abdominal pain men, vaginal bleeding, weakness, fever, dyspnea, syncope, headache, dizziness, GI bleed, back pain, seizure, CVA, palpatations, mental health, musculoskeletal)? @ -[not applicable] EKG interpreted by me (3pts min.). @ -[As above] X-rays interpreted by me (1pt min.). @ -Left knee x-ray does not reveal any fracture dislocation. There is severe arthritis changes CT interpreted by me (1pt min.). @ -[None done] U/S interpreted by me (1pt. min.). @ -[None done] What testing was considered but not performed or refused? (CT, X-rays, U/S, labs)? Why? @ -[None] What meds were considered but not given or refused? Why? @ -[None] Did you discuss the management of the patient with other professionals (professionals i.e. , PA, RIG BUILDER, lab, RT, psych nurse, social services specialist, composite science teacher, teacher, zoology technical officer, casework manager)? Give summary @ -[No] Was smoking cessation discussed for >3mins.? @ -[No] Was critical care preformed (if so, how long)? @ -[No] Were there social determinants of health that impacted care today? How? (Homelessness, low income, unemployed, alcoholism, drug addiction, transportation, low edu. Level, literacy, decrease access to med. care, shelter, rehab)? @ -[No] Was there de-escalation of care discussed even if they declined (Discuss DNR or withdrawal of care, Hospice)? DNR status @ -[No] What co-morbidities impacted this encounter? (DM, HTN, Smoking, COPD, CAD, Cancer, CVA, ARF, Chemo, Hep., AIDS, mental health diagnosis, sleep apnea, morbid obesity)? @ -[None] Was patient admitted / discharged? Hospital course, mention meds given and route, prescriptions, significant lab abnormalities, going to OR and other pertinent info. @ Discharged. This is an 78-year-old female presents to the emergency department with left knee pain. Patient and physical exam performed. Physical exam essentially unremarkable. Patient initially tachycardic. Lungs sounds clear to auscultation bilaterally abdomen soft and nontender. Without market edema or erythema. Full range of motion. No crepitus noted. Patient had imaging which were essentially unremarkable. Patient was provided with motrin with symptomatic improvement. She is provided with a prescription for motrin and lidoderm patches. Return precautions were discussed at length. Recommend close follow-up with PCP in 1-2 days. Patient discharged in stable condition. Case is discussed with STEVE Godoy who agrees with POC. Undiagnosed new problem with uncertain prognosis? @ -[No] Drug Therapy requiring intensive monitoring for toxicity (Heparin, Nitro, Insulin, Cardizem)? @ -[No] Were any procedures done? @ -[No] Diagnosis/symptom? @ -Left knee pain Acute, or Chronic, or Acute on Chronic? @ -Acute Uncomplicated (without systemic symptoms) or Complicated (systemic symptoms)? @ -Uncomplicated Side effects of treatment? @ -[No] Exacerbation, Progression, or Severe Exacerbation? @ -[No] Poses a threat to life or bodily function? How? (Chest pain, [place], [place], pneumonia, PE, COPD, DKA, ARF, appy, cholecystitis, CVA, Diverticulitis, Homicidal, Suicidal, threat to staff... and all critical care pts) @ -Low likelihood Disposition Clinical Impression: Knee pain, left Disposition: HOME SELF-CARE Condition: Stable Instructions (If sedation given, give patient instructions): Knee Pain (ED) Additional Instructions: Please monitoring symptoms closely Please return to the emergency department if worsening pain Prescriptions: Lidocaine 5% Patch [Lidoderm 5% Patch] 1 patch TOPICAL DAILY #5 patch Ibuprofen [Motrin] 800 mg PO Q6HR #30 tab Is patient prescribed a controlled substance at d/c from ED?: No Referrals: Keith Monson MD [Primary Care Provider] - 1-2 days Eulogio Prado MD [STAFF PHYSICIAN] - 1-2 days Time of Disposition: 23:30
--- NOTE | 2023-10-08 23:12 | XR ---
EXAMINATION TYPE: XR knee complete LT DATE OF EXAM: 10/08/2023 9:09 PM CLINICAL INDICATION:Female, 78 years old with history of left knee pain; [facility] COMPARISON: None. TECHNIQUE: XR knee complete LT; examined in Frontal, lateral and oblique projections. FINDINGS: No evidence of acute osseous pathology, soft tissue swelling, or joint effusion is noted. Moderate to severe osteoarthropathy of the medial and patellofemoral compartments with joint space n arrowing and marginal osteophytosis. Moderate lateral compartment arthropathy. IMPRESSION: 1. No evidence of acute fracture or dislocation. 2. Moderate to severe tricompartmental osteoarthritic changes.
[2023-10-09 00:47] VITALS: BP 140/79; PULSE 65
== END 2023-10-09 00:27 | disposition home or self-care (01) ==
LOC: EC 20:32
DX: M25.562 Pain in left knee (principal); I10 Essential (primary) hypertension; Z79.899 Other long term (current) drug therapy; Z87.891 Personal history of nicotine dependence
CPT/HCPCS: 99283

== ENCOUNTER → 2024-01-16 | Outpatient (CLI) | payer MEDICARE ==
--- NOTE | 2024-01-18 09:32 | MR ---
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 Then, heavily T2 weighted imaging (half-Fourier acquisition single- shot turbo spin-echo) was utilized in order to study the biliary system. Maximum intensity projectio n images were reconstructed from the original data of the biliary tree. 3D images were created on a [employer] work station. No Gadolinium given. FINDINGS: Lower Thorax: No evidence for acute process. MRCP: * The intrahepatic ducts are mildly dilated in the central portion extending into the extrahepatic p ortions. * The common bile duct at the level of the pancreatic head measures 7 mm in size. * The common hepatic duct measures 12 mm in size. * The pancreatic duct is normal 4 size. * The gallbladder demonstrates multiple layering gallstones within the lumen. Abdomen: Liver: Unremarkable. Pancreas: Scattered high T2 signal lesions remain throughout the pancreatic parenchyma. Overall these lesions are relatively similar morphology and size compared to prior examination. The largest in the pancreatic tail with septations measuring 17 x 11 mm is unchanged. Largest in the pancreatic neck po steriorly measuring 19 x 13 mm is also unchanged scattered smaller high T2 signal cystic lesions are also present. Spleen: Unremarkable. Adrenal glands: Unremarkable. Kidneys: High T2 signal signal cyst in the inferior pole of left kidney. Stomach and Bowel: Unremarkable as visualized. Peritoneum/retroperitoneum: Retroperitoneum as seen in the right abdomen on prior exam is no longer v isualized. No evidence of pneumoperitoneum or free fluid. Vasculature: Unremarkable. No aortic aneurysm. Musculoskeletal: The osseous structures appear intact. Lymph Nodes: No gross evidence for lymphadenopathy. Abdominal wall: Unremarkable. IMPRESSION: 1. Stable cystic lesions throughout the pancreas. These are favored to be benign and could represent intraductal papillary mucinous neoplasms of the side branch type, serous or mucinous cystadenomas or cystadenocarcinomas. Surveillance recommended. 2. Resolution of prior retroperitoneal mass suggesting hemorrhage on prior exam. 3. No biliary ductal dilation the extrahepatic system and central intrahepatic system is not signifi cantly changed from prior. 4. No evidence to suggest ductal stricture, choledocholithiasis. 5. Cholelithiasis.
== END | disposition home or self-care (01) ==
LOC: RADMRIMAIN 07:39
PROVIDERS: ATTEND Internal Medicine
DX: K80.20 Calculus of gallbladder without cholecystitis without obstruction (principal); C88.0 Waldenstrom macroglobulinemia; K86.89 Other specified diseases of pancreas
CPT/HCPCS: 74181

== ENCOUNTER → 2024-01-24 | Outpatient (CLI) | payer MEDICARE ==
--- NOTE | 2024-01-24 15:24 | US ---
EXAMINATION TYPE: US thyroid st tissue head/neck DATE OF EXAM: 01/24/2024 COMPARISON: US 2022 CLINICAL INDICATION: Female, 78 years old with history of C88.0 WALDENSTROM MACROGLOBULINEMIA; GLAND SIZE: Right Lobe: 5.4 x 1.8 x 1.8 cm, enlarged Overall Parenchyma: heterogenous Left Lobe: 5.4 x 1.6 x 1.4 cm, enlarged Overall Parenchyma: heterogenous Isthmus Thickness: 0.2 cm NODULES RIGHT: # of nodules measured on right: 2 1. 1.9 X 1.5 x 1.6 cm, lower mid, solid or almost completely solid, hypoechoic nodule, which is wid er than tall, with ill-defined margins, without echogenic foci. TR 4 Prior size: 1.7 x 1.3 x 1.4 cm 2. 1.1 X 0.6 x 0.9 cm, , solid or almost completely solid, isoechoic nodule, which is wider than ta ll, with ill-defined margins, without echogenic foci. Prior size: no previous LEFT: # of nodules measured on left: 3 1. 1.4 X 0.9 x 1.2 cm, mid, mixed cystic and solid, hypoechoic nodule, which is wider than tall, wi th smooth margins, without echogenic foci. Prior size: 1.4 x 0.8 x 1.0 cm 2. 1.0 X 0.9 x 0.8 cm, lower mid, solid or almost completely solid, hyperechoic nodule, which is w ider than tall, with ill-defined margins, without echogenic foci. Prior size: no previous 3. 0.9 X 0.8 x 0.8 cm, lower mid, mixed cystic and solid, hypoechoic nodule, which is wider than ta ll, with smooth margins, without echogenic foci. Prior size: 0.8 x 0.7 x 0.8 cm ISTHMUS: # of nodules measured in the isthmus: 0 Bilateral neck scanned, no evidence of lymphadenopathy. Multiple bilateral thyroid nodules with largest described above IMPRESSION: 1. Moderately suspicious nodule left lobe thyroid. Follow-up exam in one year is recommended. 2017 ACR TI-RADS LEVEL: TR-RADS 4 - Moderately Suspicious: Follow if > 1 cm, FNA if > 1.5 cm *Highest TI-RADS level nodule reported
== END | disposition home or self-care (01) ==
LOC: RADUSWWP 14:28
PROVIDERS: ATTEND Internal Medicine
DX: C88.0 Waldenstrom macroglobulinemia (principal); Z71.3 Dietary counseling and surveillance; K86.2 Cyst of pancreas
CPT/HCPCS: 76536

== ENCOUNTER → 2024-12-04 | Outpatient (CLI) | payer MEDICARE ==
[2024-12-04 15:08] LABS: Basophils # (A) 0.04 X 10*3/uL (0.00-0.10); Basophils % (A) 1.1 %; Eosinophils # (A) 0.04 X 10*3/uL (0.04-0.35); Eosinophils % (A) 1.1 %; HCT 39.7 % (37.2-46.3); HGB 12.8 g/dL (12.0-15.0); Lymphocytes # (A) 1.28 X 10*3/uL (0.90-5.00); MCH 30.2 pg (27.0-32.0); MCHC 32.2 g/dL (32.0-37.0); MCV 93.6 FL (80.0-97.0); Mean Platelet Volume 10.4 FL (9.5-12.2); Monocytes # (A) 0.39 X 10*3/uL (0.20-1.00); Monocytes % (A) 10.7 %; NRBC Per 100 WBC 0 X 10*3/uL (0.00-0.01); Neutrophils % (A) 51.8 %; Platelet Count 265 X 10*3/uL (140-440); RBC 4.24 X 10*6/uL (4.10-5.20); RDW 14.2 % (11.5-14.5); WBC 3.66 X 10*3/uL (4.50-10.00)
[2024-12-04 15:41] LABS: ALT 16 U/L (8-44); AST 17 U/L (13-35); Albumin 4.1 g/dL (3.8-4.9); Albumin/Globulin Ratio 2.05 Ratio (1.60-3.17); Alkaline Phosphatase 77 U/L (41-126); Blood Urea Nitrogen 16.5 mg/dL (9.0-27.0); Calcium 9.3 mg/dL (8.7-10.3); Carbon Dioxide 24.1 mmol/L (21.6-31.8); Chloride 108 mmol/L (96-109); Chol/HDL Ratio 2.47 Ratio; Glucose 103 mg/dL (70-110); LDL Cholesterol,Calculated 84.3 mg/dL (0.0-131.0); Magnesium 2.1 mg/dL (1.5-2.4); Sodium 143 mmol/L (135-145); Total Bilirubin 0.4 mg/dL (0.3-1.2); Total Protein 6.1 g/dL (6.2-8.2); VLDL Calculation 17.02 mg/dL (5.00-40.00)
== END ==
LOC: LABWHC1 08:38
PROVIDERS: ATTEND Internal Medicine
DX: Z00.00 Encounter for general adult medical examination without abnormal findings (principal); I10 Essential (primary) hypertension; R73.9 Hyperglycemia, unspecified; M85.80 Other specified disorders of bone density and structure, unspecified site
CPT/HCPCS: 36415; 80053; 80061; 82306; 83036; 83735; 84443; 85025

== ENCOUNTER → 2025-01-20 | Outpatient (CLI) | payer MEDICARE ==
--- NOTE | 2025-01-20 15:37 | US ---
EXAMINATION TYPE: US carotid duplex BILAT DATE OF EXAM: 01/20/2025 COMPARISON: NONE CLINICAL INDICATION: Female, 79 years old with history of R42 DIZZY GIDDY; Dizzy Additional History: R42* Dizziness TECHNIQUE: Grayscale, color Doppler and spectral Doppler evaluation of the bilateral carotid systems and vertebral arteries. Indirect Doppler criteria was utilized. FINDINGS: EXAM MEASUREMENTS: RIGHT: Peak Systolic Velocity (PSV) cm/sec ----- Right CCA: 71.5 ----- Right ICA: 76.7 ----- Right ECA: 61.7 ICA/CCA ratio: 1.1 RIGHT: End Diastole cm/sec ----- Right CCA: 17.5 ----- Right ICA: 22.7 ----- Right ECA: 14.3 LEFT: Peak Systolic Velocity (PSV) cm/sec ----- Left CCA: 87.1 ----- Left ICA: 75.4 ----- Left ECA: 60.4 ICA/CCA ratio: .9 LEFT: End Diastole cm/sec ----- Left CCA: 17.5 ----- Left ICA: 14.3 ----- Left ECA: 3.9 VERTEBRALS (direction of flow): Right Vertebral: Antegrade Left Vertebral: Antegrade Rhythm: Normal SENIOR FUND ACCOUNTANT NOTES: Mild atheromatous plaque is identified. No significant stenosis seen Color Doppler imaging shows patency with blood flow throughout the carotid artery. Spectral waveforms are within normal limits. IMPRESSION: 1. No significant flow-limiting stenosis based on velocities. Criteria for Assigning % of Stenosis / Diameter reduction (Estimation based on the indirect measurements of the internal carotid artery velocities (ICA PSV). 1. Normal (no stenosis)=ICA PSV < 125 cm/s: ratio < 2.0: ICA EDV<40 cm/s. 2. Less than 50% stenosis=ICA PSV < 125 cm/s: ratio < 2.0: ICA EDV<40 cm/s. 3. 50 to 69% stenosis=ICA PSV of 125 to 230 cm/s: ration 2.0 ? 4.0: ICA EDV 40-100 cm/s. 4. Greater than 70% stenosis to near occlusion= ICA PSV > 230 cm/s: ratio > 4.0: ICA EDV > 100 cm/s. 5. Near occlusion= ICA PSV velocities may be low or undetectable: variable ratio and ICA EDV. 6. Total occlusion=unable to detect flow. [facility], , 01/20/2025 3:35 PM
--- NOTE | 2025-01-21 11:58 | CA ---
Transthoracic Echo Report Name: Rafia Gonzales Age: 79 Gender: F : 1945 Exam Date: 01/20/2025 13:52 Exam Location: [place] [facility] Ht (in): 66 Wt (lb): 178 Ordering Physician: Keith Monson DO Attending/Referring Phys: Director [employer] Hector Schuster, ZANE Procedure CPT: Indications: R42 DIZZY GIDDY Cardiac Hx: Technical Quality: Good Contrast 1: Total Dose (mL): Contrast 2: Total Dose (mL): MEASUREMENTS (Male / Female) Normal Values 2D ECHO LV Diastolic Diameter PLAX 4.4 cm 4.2 - 5.9 / 3.9 - 5.3 cm LV Systolic Diameter PLAX 3.1 cm IVS Diastolic Thickness 0.9 cm 0.6 - 1.0 / 0.6 - 0.9 cm LVPW Diastolic Thickness 1.0 cm 0.6 - 1.0 / 0.6 - 0.9 cm LV Relative Wall Thickness 0.4 RV Internal Dim ED PLAX 3.4 cm Aortic Root Diameter 3.2 cm LA Systolic Diameter LX 3.7 cm 3.0 - 4.0 / 2.7 - 3.8 cm LV Diastolic Volume MOD 4C 76.8 cm??? LV Systolic Volume MOD 4C 35.3 cm??? LV Ejection Fraction MOD 4C 54.1 % LV Cardiac Index MOD 4C 1375.9 cm???/min???m??? LV Diastolic Length 4C 8.2 cm LV Systolic Length 4C 7.2 cm LV Diastolic Volume MOD 2C 90.3 cm??? LV Systolic Volume MOD 2C 43.2 cm??? LV Ejection Fraction MOD 2C 52.2 % LV Cardiac Index MOD 2C 1561.2 cm???/min???m??? LV Diastolic Length 2C 8.7 cm LV Systolic Length 2C 7.3 cm LA Volume 51.7 cm??? 18 - 58 / 22 - 52 cm??? LA Volume Index 26.4 cm???/m??? 16 - 28 cm???/m??? DOPPLER MV Area PHT 1.8 cm??? Mitral E Point Velocity 62.1 cm/s Mitral A Point Velocity 95.5 cm/s Mitral E to A Ratio 0.7 MV Deceleration Time 421.5 ms TR Peak Velocity 215.5 cm/s TR Peak Gradient 18.6 mmHg Right Atrial Pressure 15.0 mmHg Pulmonary Artery Systolic Pressu 33.6 mmHg Right Ventricular Systolic Press 33.6 mmHg FINDINGS Left Ventricle Left ventricular ejection fraction is estimated at 55-60 %. Normal Left ventricular size, wall thickness, systolic function. No obvious regional wall motion abnormalities. Right Ventricle Normal right ventricular size and function. Right ventricular systolic pressure within normal limits. Right Atrium Normal right atrial size. Left Atrium Normal left atrial size. Mitral Valve Mitral valve thickened. No mitral stenosis. No mitral regurgitation. Aortic Valve Trileaflet aortic valve. No aortic stenosis. No aortic regurgitation. Tricuspid Valve Structurally normal tricuspid valve. No tricuspid stenosis. Trace tricuspid regurgitation. Pulmonic Valve Structurally normal pulmonic valve. No pulmonic stenosis. No pulmonic regurgitation. Pericardium Trace pericardial effusion. Aorta Normal size aortic root and proximal ascending aorta. CONCLUSIONS LVEF 55-60% No obvious regional wall motion abnormalities. Normal right ventricular size and function. No significant valve dysfunction Previewed by: Dr Myles Barreto (Electronically Signed) Final Date: 21 January 2025 11:58
== END | disposition home or self-care (01) ==
LOC: RADUSWWP 12:54
PROVIDERS: ATTEND Internal Medicine
DX: I07.1 Rheumatic tricuspid insufficiency (principal); R42 Dizziness and giddiness
CPT/HCPCS: 93306; 93880

== ENCOUNTER → 2025-02-12 | Outpatient (CLI) | payer MEDICARE ==
--- NOTE | 2025-02-12 12:25 | US ---
EXAMINATION TYPE: US thyroid st tissue head/neck DATE OF EXAM: 02/12/2025 COMPARISON: 01/24/24 CLINICAL INDICATION: Female, 80 years old with history of E04.1 THYROID NODULE; F/U TECHNIQUE: Grayscale and color Doppler imaging of the thyroid gland. FINDINGS: GLAND SIZE: Right Lobe: 5.5x2.5x1.5 cm Overall Parenchyma: homogeneous Left Lobe: 5.9x1.4x1.6 cm Overall Parenchyma: homogeneous Isthmus Thickness: 0.2 cm NODULES RIGHT: # of nodules measured on right: 2 1. 1.8 X 1.2 x 1.4 cm, lower mid, solid or almost completely solid, hyperechoic nodule, which is wi mikal than tall, with ill-defined margins, without echogenic foci. TR4 Prior size: 1.9 x 1.4 x 1.6 cm 2. 1.1 X 0.6 x 1.0 cm, lower medial, solid or almost completely solid, isoechoic nodule, which is w ider than tall, with smooth margins, without echogenic foci. Prior size: 1.1 x 0.6 x 0.9 cm LEFT: # of nodules measured on left: 3 1. 1.2 X 0.7 x 1.0 cm, upper mid, solid or almost completely solid, hypoechoic nodule, which is wid er than tall, with ill-defined margins, without echogenic foci. Prior size: 1.4 x 0.9 x 1.0 cm 2. 0.9 X 0.1 x 1.1 cm, lower mid, solid or almost completely solid, isoechoic nodule, which is wide r than tall, with ill-defined margins, without echogenic foci. Prior size: 1.0 x 0.9 x 0.9 cm 3. 0.7 X 0.7 x 0.8 cm, lower mid, mixed cystic and solid, hypoechoic nodule, which is wider than t all, with ill-defined margins, without echogenic foci. Prior size: 0.9 x 0.8 x 0.8 cm ISTHMUS: # of nodules measured in the isthmus: 0 Bilateral neck scanned, no evidence of lymphadenopathy. IMPRESSION: TR-RADS 4 - Moderately Suspicious: Follow if > 1 cm, FNA if > 1.5 cm *Highest TI-RADS level nodule re ported 2017 ACR TI-RADS LEVEL: *Highest TI-RADS level nodule reported [email or web address] [facility], , 02/12/2025 12:22 PM
== END | disposition home or self-care (01) ==
LOC: RADUSWWP 10:47
PROVIDERS: ATTEND Internal Medicine
DX: C88.00 Waldenstrom macroglobulinemia not having achieved remission (principal); E04.2 Nontoxic multinodular goiter; K86.2 Cyst of pancreas; Z71.3 Dietary counseling and surveillance
CPT/HCPCS: 76536